=== PATIENT | female | born 1965 | race Caucasian/White ===

== ENCOUNTER → 2017-09-04 | Outpatient (CLI) | payer OTHER | LOC: CAT 16:42 | DX: R59.1 Generalized enlarged lymph nodes (principal) ==

== ENCOUNTER → 2017-10-30 | Outpatient (CLI) | payer OTHER | LOC: MRI 08:15 | DX: R59.0 Localized enlarged lymph nodes (principal) ==

== ENCOUNTER → 2017-10-31 | Outpatient (CLI) | payer OTHER | LOC: RAD 08:33 | DX: N63.10 Unspecified lump in the right breast, unspecified quadrant (principal); R92.8 Other abnormal and inconclusive findings on diagnostic imaging of breast ==

== ENCOUNTER → 2017-11-02 | Outpatient (CLI) | payer OTHER ==
--- NOTE | ~2017-11-02 | S ---
[facility] [address] [place] [address] SURGICAL PATH RPT PROCEDURE Name: JAMAICA OORZCO Room #: REG [facility].#: [id number] Admission: 11/02/17 Date of : 63 Discharge: Report #: [id number] Path Case #: [id number] PATHOLOGY REPORT COLLECTION DATE: 11/02/2017 RECEIVED DATE: 11/02/2017 SUBMITTING PHYS: Dr. Arturo Chaves OTHER PHYS: Dr. Jt Ashley SPECIMEN(S) RECEIVED: A.Left breast 6:00 2cm FN B.Left breast axilla node * * * * * * * * * * * * FINAL DIAGNOSIS: A. Left breast 6:00 2cm FN: - INVASIVE MAMMARY CARCINOMA, DUCTAL TYPE, POORLY DIFFERENTIATED. - See comment. B. Left breast axilla node: - METASTATIC CARCINOMA PRESENT. COMMENT: Specimen type: Breast biopsy Tumor site: Left breast, 6:00, 2 cm from nipple Tumor quantitation: Measures up to 0.4 cm in greatest dimension Histologic type: Invasive mammary carcinoma, ductal type Histologic grade: Grade 3, poorly differentiated Tubules, nuclei and mitoses: Tubules 3, Nuclei 2, Mitoses - 3 LVSI: Not identified Microcalcifications: Not identified Markers: ER, MS, HER2, Ki67 Block: A1, will be reported as addendum This case is co-reviewed by Dr. Anca Sullivan. The findings were discussed with [place] at the [facility] on 11/03/2017 at 1:58 PM. PATHOLOGIST: REPORT ELECTRONICALLY SIGNED BY: Tom Barboza M.D. for DATE/TIME: 11/03/2017 14:00 * * * * * * * * * * * * [facility] [place] [address] SURGICAL PATH RPT PROCEDURE Name: JAMAICA OROZCO [id number] Admission: 11/02/17 Date of : 63 Discharge: Report #: [id number] Path Case #: [id number] GROSS PATHOLOGY: A. Received in formalin labeled "Jamaica Orozco, left breast 6:00 2 cm FN," are three needle cores of yellow-pearl fibrofatty tissue measuring 2.0 x 1.3 x 0.3 cm in aggregate dimensions. The tissue is submitted in its entirety in cassette A1. The cold ischemic time is 5 minutes. The total formalin fixation time is 10 hours and 45 minutes. B. Received in formalin labeled "Jamaica Orozco, left breast axilla node," are four needle cores of yellow-pearl fibrofatty tissue measuring 1.4 x 0.4 x 0.1 cm in aggregate dimensions. The tissue is submitted in its entirety in cassette B1. The cold ischemic time is 5 minutes. The total formalin fixation time is 10 hours and 40 minutes. (SDY; 11/02/2017) CLINICAL HISTORY: Left breast mass, left axilla enlarged concern for lymphoma INITIAL CPT CODE(S): A; 19571, 60291(4) B; 20783 PROCEDURE REPORT (Order Date: 11/03/2017 14:01) COMMENT: Quantitative image analysis was performed on block A1. Please see next page for scanned image of results. (AMJ 11/07/2017) PATHOLOGIST: Glenn Hebert M.D. REPORT ELECTRONICALLY SIGNED BY: Glenn Hebert M.D. DATE/TIME: 11/07/2017 13:[address] [facility] [address] [place] [id number] PHONE: [phone] DIRECTOR: Yoni Elmore M.D. * * * END OF REPORT * * *
== END | disposition home or self-care (01) ==
LOC: ULTRA 07:49
DX: C79.81 Secondary malignant neoplasm of breast (principal); C80.1 Malignant (primary) neoplasm, unspecified; R92.0 Mammographic microcalcification found on diagnostic imaging of breast

== ENCOUNTER → 2017-11-07 | Outpatient (CLI) | payer OTHER | LOC: NUC 08:21 | DX: M19.012 Primary osteoarthritis, left shoulder (principal); C50.912 Malignant neoplasm of unspecified site of left female breast ==

== ENCOUNTER → 2017-11-13 | Outpatient (CLI) | payer OTHER ==
[~2017-11-13] MED LIST: HYDROCODONE-AP1 EAC6 PO; KEFLEX500 M1 PO; SYNTHROID50 MCG PO; VALIUM5 MG PO; ZOFRAN ODT4 MG PO
--- NOTE | ~2017-11-13 | 2DMMODE ---
[facility] [address] [place] [address] 2 D/M-MODE ECHOCARDIOGRAM Name: JAMAICA OROZCO Room #: REG [facility]#: [id number] Admission: 11/13/17 Attend Phys: Physician not on s Discharge: Date of : 63 Date of Service: 11/13/17 0921 Report #: [id number] THIS REPORT FOR: //name// APPROVED REPORT Study performed: 11/13/2017 09:31:48 EXAM: Comprehensive 2D, Doppler, and color-flow Echocardiogram Patient Location: Out-Patient Status: routine BSA: 1.73 HR: 75 bpm BP: 110/82 mmHg Rhythm: NSR Other Information Study Quality: Good Indications Pre-Chemo. 2D Dimensions RVDd: 33.74 mm LVEF(%): 64.41 (>50%) IVSd: 11.28 (7-11mm) LVOT Diam: 19.80 (18-24mm) LVDd: 37.42 mm PWd: 9.29 (7-11mm) LVDs: 24.51 (25-40mm) Aortic Root: 31.45 mm Fowler's LVEF: 64.41 % Volumes Left Atrial Volume (Systole) Single Plane 4CH: 30.65 mL Single Plane 2CH: 27.86 mL LA ESV Index: 18.00 mL/m2 Aortic Valve AoV Peak Kevin.: 1.41 m/s AO Peak Gr.: 7.95 mmHg LVOT Max P.28 mmHg LVOT Max V: 1.35 m/s TAO Vmax: 2.94 cm2 Mitral Valve E/A Ratio: 0.8 MV Decel. Time: 205.28 ms [facility] [address] [place] [address] 2 D/M-MODE ECHOCARDIOGRAM Name: PAMJAMAICA Room #: [facility]#: [id number] Admission: 11/13/17 Attend Phys: Physician not on s Discharge: Date of : 63 Date of Service: 11/13/17 0921 Report #: [id number] MV E Max Kevin.: 0.58 m/s MV A Kevin.: 0.71 m/s MV PHT: 59.53 ms IVRT: 87.66 ms Pulmonary Valve PV Peak Kevin.: 1.01 m/s PV Peak Gr.: 4.08 mmHg Pulmonary Vein P Vein S: 0.50 m/s P Vein A: 0.31 m/s P Vein D: 0.32 m/s P Vein A Dur.: 124.6 msec P Vein S/D Ratio: 1.56 Tricuspid Valve TR Peak Kevin.: 2.09 m/s RAP Estimate: 5.00 mmHg TR Peak Gr.: 17.40 mmHg PA Pressure: 22.00 mmHg Left Ventricle The left ventricle is normal size. There is normal LV segmental wall motion. There is normal left ventricular wall thickness. Left ventricular systolic function is normal. LVEF is 55-60%. Mild diastolic dysfunction is present (impaired relaxation pattern). Right Ventricle The right ventricle is normal size. The right ventricular systolic function is normal. Atria The left atrium size is normal. The right atrium size is normal. Aortic Valve The aortic valve is normal in structure. No aortic regurgitation is present. There is no aortic valvular stenosis. Mitral Valve The mitral valve is normal in structure. Trace mitral regurgitation. No evidence of mitral valve stenosis. Tricuspid Valve The tricuspid valve is normal in structure. Trace tricuspid regurgitation. Estimated PAP is 20-25mmHg. Pulmonic Valve [facility] [address] [place] [address] 2 D/M-MODE ECHOCARDIOGRAM Name: JAMAICA OROZCO Room #: REG [facility]#: [id number] Admission: 11/13/17 Attend Phys: Physician not on s Discharge: Date of : 63 Date of Service: 11/13/17 0921 Report #: [id number] The pulmonary valve is normal in structure. Trace pulmonic regurgitation. Great Vessels The aortic root is normal in size. The ascending aorta is normal in size. IVC is normal in size and collapses >50% with inspiration. Pericardium There is no pericardial effusion. <Conclusion> The left ventricle is normal size. LVEF is 55-60%. The aortic valve is normal in structure. The mitral valve is normal in structure. Trace mitral regurgitation. The tricuspid valve is normal in structure. Trace tricuspid regurgitation. Estimated PAP is 20-25mmHg. The pulmonary valve is normal in structure. Trace pulmonic regurgitation. There is no pericardial effusion. <ELECTRONICALLY SIGNED> By: Josesito Pruitt MD 11/13/17920 0 0 Josesito Pruitt MD /INF
--- NOTE | ~2017-11-13 | S ---
[facility] [address] [place] [address] SURGICAL PATH RPT PROCEDURE Name: JAMAICA OROZCO Room #: REG [facility].#: [id number] Admission: 11/13/17 Date of : 63 Discharge: Report #: [id number] Path Case #: [id number] PATHOLOGY REPORT COLLECTION DATE: 11/13/2017 RECEIVED DATE: 11/13/2017 SUBMITTING PHYS: Dr. Arturo Chaves OTHER PHYS: Dr. Ronaldo Casas ADDENDUM REPORT (Order Date: 11/16/2017 16:02) ADDENDUM COMMENT: An addendum is issued to relay immunohistochemical stain results and final diagnosis. Immunohistochemical stains with appropriate control show: (Block A1) CD20: highlights B lymphoid cells within germinal centers and mantle zone CD3: highlights T lymphoid cells within interfollicular regions CD5: highlights T lymphoid cells within interfollicular regions CD10: highlights B lymphoid cells within germinal centers BCL-6: highlights B lymphoid cells within germinal centers CD43: highlights T lymphoid cells within interfollicular regions BCL-2: highlights B and T lymphoid cells with lack of staining within germinal centers Immunophenotypic studies by flow cytometry do not show evidence of non-Hodgkin lymphoma (please see separate flow cytometry report from [employer] ([id number]). Based on the morphology, immunohistochemical staining pattern and flow cytometry, these findings are consistent with benign reactive lymph node. It should be noted that partially involved lymph node by malignancy cannot be totally excluded due to sampling artifact. Excision of the lymph node is recommended if clinically suspicious. (LOSQ:mgnancy; 11/16/2017) Professional services performed under supervision of [facility] Quality Systems [place] [address] [place] [address]. ELECTRONICALLY SIGNED BY: Sissy Herndon M.D. DATE/TIME:11/16/2017 23:53 SPECIMEN(S) RECEIVED: A.Left neck node * * * * * * * * * * * * FINAL DIAGNOSIS: Lymph node "left neck node, biopsy": [address] [address] SURGICAL PATH RPT PROCEDURE Name: JAMAICA OROZCO Room #: REG [facility]#: [id number] Admission: 11/13/17 Date of : 63 Discharge: Report #: [id number] Path Case #: [id number] - Negative for carcinoma. - See comment. COMMENT: This case will also be reviewed by the hematopathologist, Dr. Sissy Herndon. History of previous breast carcinoma noted. Immunoperoxidase stains are ordered to rule out a lymphoma and an additional report will follow by the Hematopathologist (CHERY:loni; 11/14/2017) PATHOLOGIST: Glenn Hebert M.D. REPORT ELECTRONICALLY SIGNED BY: Glenn Hebert M.D. DATE/TIME: 11/15/2017 16:08 * * * * * * * * * * * * GROSS PATHOLOGY: Received in formalin labeled "Shay[place], [place], left neck node" and consists of a few red quiñones tissue cores ranging in size a 0.2 cm to 0.4 cm, each with a uniform diameter of less than 0.1 cm. The specimen is totally submitted as A1. (TAVIA; 11/13/2017) CLINICAL HISTORY: Left neck node, breast CA INITIAL CPT CODE(S): A; 63578, 33465, 34933, 54415, 03619, 61457, 83060, 73255 Professional services performed by [facility] at [facility] [address], [place] [address] Technical services performed by [facility] at [address] [place] [address], [address], [place] [address]. [facility] [address] [place] [address] PHONE: [phone] DIRECTOR: Yoni Elmore M.D. * * * END OF REPORT * * *
== END | disposition home or self-care (01) ==
LOC: CV 06:58
DX: D36.0 Benign neoplasm of lymph nodes (principal)

== ENCOUNTER → 2017-11-16 | Outpatient (CLI) | payer OTHER ==
[~2017-11-16] VITALS: Ht 165.1 cm; Wt 65.8 kg
[2017-11-16 10:04] VITALS: BP 143/74
== END | disposition home or self-care (01) ==
LOC: SPEC 07:13
DX: Z45.2 Encounter for adjustment and management of vascular access device (principal); C50.912 Malignant neoplasm of unspecified site of left female breast

== ENCOUNTER → 2018-03-12 | Outpatient (CLI) | payer OTHER | LOC: MRI 06:06 | DX: C50.912 Malignant neoplasm of unspecified site of left female breast (principal); R59.9 Enlarged lymph nodes, unspecified ==

== ENCOUNTER → 2018-04-03 | Outpatient (CLI) | payer OTHER | LOC: RAD 10:35 | DX: Z01.818 Encounter for other preprocedural examination (principal); Z85.3 Personal history of malignant neoplasm of breast ==

== ENCOUNTER 2018-04-18 05:30 | Observation (INO) | payer OTHER ==
[~2018-04-18] VITALS: Ht 165.1 cm; Wt 67.1 kg
--- NOTE | ~2018-04-18 | EKG ---
[address] [address] ELECTROCARDIOGRAM REPORT Name: JAMAICA OROZCO Room #: 150-5 [facility]#: [id number] Admission: 04/18/18 Attend Phys: Nuno Martin MD Discharge: Date of : 63 Report #: [id number] THIS REPORT FOR: //name// [facility] Test Date: 2018-04-18 Test Time: 07:43:21 Pat Name: JAMAICA OROZCO Department: Room: 150 5 Gender: F Private Mortgage Banker Safe: : 1965 Requested By: Nuno Martin Order Number: [id number] MD: Rick Rivas Measurements Intervals Alleene Rate: 69 P: 13 ND: 147 QRS: 21 QRSD: 79 T: 24 QT: 406 QTc: 435 Interpretive Statements Sinus rhythm Normal tracing No previous ECG available for comparison Electronically Signed On 04-18-2018 7:54:47 CDT by Rick Rivas [email or web address] <ELECTRONICALLY SIGNED> By: Rick Rivas MD, [facility] 04/18/18 0754 0743 0743 Rick Rivas MD, FACC /EPI
--- NOTE | ~2018-04-18 | O ---
[facility] [address] [place] [address] OPERATIVE REPORT Name: JAMAICA OROZCO Room #: 417-I [facility]#: [id number] Admission: 04/18/18 Attend Phys: Nuno Martin MD Discharge: Date of : 63 Report #: [id number] THIS REPORT FOR: //name// CC: Nuno Ashley DATE OF SERVICE: 04/18/2018 PREOPERATIVE DIAGNOSES: 1. Malignancy, left breast. 2. Acquired absence, bilateral breasts. POSTOPERATIVE DIAGNOSES: 1. Malignancy, left breast. 2. Acquired absence, bilateral breasts. PROCEDURES: 1. Bilateral tissue engineering drawings checker, reconstruction of the breast following mastectomy using [place] Artoura ultra high profile expanders, catalog #[id number], each with added saline noted separately. 2. The use of AlloDerm regenerative tissue matrix utilized for the reconstruction of bilateral breasts following mastectomy. 3. The use of the SPY Elite system for evaluation of skin vascularity of the mastectomy flaps. SURGEON: Anthony La MD ANESTHESIA: General. ESTIMATED BLOOD LOSS: Minimal. DRAINS: Times 2. COMPLICATIONS: None. COUNTS: Needle, sponge and instrument counts correct. INDICATION FOR PROCEDURE: The patient is a 52-year-old female who presents following bilateral mastectomy for immediate reconstruction. She understands the risks, complications that were discussed preoperatively including bleeding, infection, scarring, skin loss, open wound complications and need for multiple procedures to complete the process. DESCRIPTION OF PROCEDURE: The patient was taken to the operating room after being marked in the holding area. Dr. Martin began the procedure. Upon [facility] [address] [place] [address] OPERATIVE REPORT Name: JAMAICA OROZCO Room #: 417-I REG [facility]#: [id number] Admission: 04/18/18 Attend Phys: Nuno Martin MD Discharge: Date of : 63 Report #: [id number] completion of the left breast, I was called to create the reconstruction. Just immediately prior to beginning the work on the left breast, the JumpStart handheld system was brought into place and 3 mL of indocyanine green was injected to evaluate the initial skin flap before developing any further dissection. The tissue immediately for us was showing excellent vascularity at which time the following procedure was carried out: The subpectoral flap was dissected on the left breast after copious irrigation with antibiotic solution and hemostasis achieved using cautery. At this time, the AlloDerm regenerative tissue matrix was applied and attached to the leading edge of the pectoralis muscle with 2-0 Vicryl suture running and interrupted. The engineering drawings checker was inserted and secured by all 3 posterior tabs. The AlloDerm was then tailored into place to recreate the submuscular pocket and inframammary folds. This accomplished each step of the procedure. Antibiotic irrigation was performed and hemostasis was noted to be excellent. Pesticide Applicator in place and well positioned, the procedure was then completed on that side with a placement of a 19-Surinamese Pablo drain through an inferolateral stab wound and the ON-Q pain pump catheter system. Wounds were closed with three layers with first 3-0 Monocryl running deep, the skin with Insorb skin tabitha and then 3-0 Monocryl running sutures on the skin. Interrupted 5-0 nylon and Steri-Strips later applied. The drain and ON-Q pain pumps were appropriately secured by the end of the procedure. The same procedure was carried out on the right side. Upon completion of the second side, the Spy Elite system handheld was brought into place to evaluate the intraoperative vascularity postmastectomy breast flaps. A 5 mg of indocyanine green was then injected and the intraoperative Spy Elite system handheld was placed over the patient to evaluate the vascularity of the breast tissue. The skin was healthy and well perfused almost immediately and no area of debridement or trimming was required. The patient tolerated the procedure well. Occlusive bulky dressings in place, she was taken to the recovery room in stable condition, to be discharged with prescriptions for pain, nausea and antibiotics. She will be admitted to the floor for overnight observation and pain control. By: 01 Anthony La MD /bora
--- NOTE | ~2018-04-18 | O ---
[facility] [place] [address] OPERATIVE REPORT Name: JAMAICA OROZCO Room #: 417-I REG [facility]#: [id number] Admission: 04/18/18 Attend Phys: Nuno Martin MD Discharge: Date of : 63 Report #: [id number] THIS REPORT FOR: //name// CC: Bowen Howell MD DATE OF SERVICE: 04/18/2018 PREOPERATIVE DIAGNOSIS: Carcinoma left breast with metastatic left axillary lymph node, status post neoadjuvant chemotherapy. POSTOPERATIVE DIAGNOSIS: Carcinoma left breast with metastatic left axillary lymph node, status post neoadjuvant chemotherapy, final pathology pending. OPERATION: 1. Left nipple-sparing mastectomy with en bloc axillary node dissection plus specimen x-ray for clipped axillary node. 2. Excisional biopsy, left nipple tissue. 3. Right nipple-sparing mastectomy. 4. Excisional biopsy, right nipple tissue. 5. Removal of Port-A-Cath. SURGEON: Nuno Martin MD. CO-SURGEON: Dr. Anthony La. ASSISTANTS: Medical student, Bo and medical student, MS Marisa3. ANESTHESIA: General. DESCRIPTION OF PROCEDURE: With the patient in the supine position and with a satisfactory general anesthesia, the abdomen and chest, both breasts and both axillary regions were widely prepped with ChloraPrep solution. Sterile drapes were applied. The radiologist had already performed wire localization for the clipped left axillary lymph node. Dr. La and I had already talked to the patient about options and she wanted bilateral nipple-sparing mastectomy with immediate reconstruction. She wanted removal of the Port-A-Cath. The patient had already been marked preoperatively for the appropriate anatomic landmarks. Dr. La and Chip had discussed incision options and we felt that the inframammary incisions would give the best results for this patient. A left inframammary [address] [address] OPERATIVE REPORT Name: PAMJAMAICA K Room #: 417-I [facility]#: [id number] Admission: 04/18/18 Attend Phys: Nuno Martin MD Discharge: Date of : 63 Report #: [id number] incision was made and then dissection was carried down through the skin and subcutaneous tissue. The skin flaps were developed using electrocautery and a nipple-sparing mastectomy was performed, removing the entire breast together with the pectoralis fascia. During the dissection, the dissection was carried up into the axilla and we were able to get excellent exposure to accomplish the lymph node dissection with the single inframammary incision. The radiologist had already performed wire localization for the clipped lymph node. The axillary vein, axillary artery, brachial plexus structures, long thoracic nerve and thoracodorsal nerve, artery and vein were all identified and protected from harm. The specimen included the entire breast together with the pectoralis fascia and the left axillary lymph node dissection level 1 and level 2 en bloc. The specimen was marked with sutures for orientation purposes. The blood and lymphatic supply to the resected axillary tissues were controlled using Harmonic scalpel. Specimen x-ray confirmed removal of the guidewire and the clipped lymph node and also the clip inside the breast from the previous biopsy. The radiologist was happy with the specimen x-ray and so was I. The specimen was given directly to the pathologist. Next, the tissue inside the nipple was excised and submitted for frozen section, which was benign. The skin flaps appeared excellent. We utilized the spy technology to confirm good blood supply to the skin flaps. Hemostasis was excellent. The wound was irrigated with Dr. La's antibiotic solution. At this point, I went to the right side with new gloves and instruments while Dr. La started his reconstruction on the left side. A similar incision was made on the right side and a similar dissection was performed, performing a nipple-sparing mastectomy with removal of the entire breast and the pectoralis fascia and the tail of Patton. The specimen was marked with sutures for orientation purposes and then was given directly to the pathologist. The tissue inside the right nipple was excised and submitted for frozen section, which was benign. The skin flaps appeared excellent. Hemostasis was excellent. Next, I removed the Port-A-Cath from the subcutaneous location in the right upper chest wall and this was submitted separately for gross inspection only. The venous tunnel was closed using interrupted 3-0 Vicryl. The wound was irrigated with Dr. La's antibiotic solution. Hemostasis was excellent. The sponge, instrument and needle counts were reported as correct. At this point, I scrubbed out and Dr. La then continued his reconstruction, which will be dictated separately by him. Estimated blood loss for my portion of the operation was less than 150 mL. <ELECTRONICALLY SIGNED> By: Nuno Martin MD 04/19/18 0637 1436 1504 Nuno Martin MD /nt
[~2018-04-18 05:30] MED LIST changes: -HYDROCODONE-AP1 EAC6 PO; -KEFLEX500 M1 PO; -VALIUM5 MG PO; -ZOFRAN ODT4 MG PO
[2018-04-18 07:57] LABS: HEMOGLOBIN 12.2 gm/dL (12.0-15.0); MCH 30.5 pg (26.0-34.0); MCHC 33.8 g/dL (28.0-37.0); MCV 90.2 fL (80.0-100.0); RBC 3.99 mil/uL (4.20-5.00); RDW 14.3 % (10.5-14.5); WBC 4.9 thou/uL (4.0-11.0)
[2018-04-18 08:06] LABS: CREATININE 0.8 mg/dL (0.6-1.0); POTASSIUM 3.7 mmol/L (3.5-5.1)
[2018-04-18 08:12] LABS: ALBUMIN 3.3 g/dL (3.4-5.0); TOTAL BILIRUBIN 0.2 mg/dL (<0.1-1.0); TOTAL PROTEIN 6.5 g/dL (6.4-8.2)
[2018-04-18 08:28] VITALS: BP 120/72
[2018-04-19] VITALS: BP 148/76
[2018-04-19 08:25] VITALS: BP 115/76
[2018-04-19 10:22] VITALS: BP 115/76
[2018-04-19] MEDS ORDERED: VALIUM5 MG PO (10:38)
[2018-04-19] MEDS ORDERED: HYDROCODONE-AP1 EAC6 PO (10:39)
[2018-04-19] MEDS ORDERED: KEFLEX500 M1 PO (10:39)
[2018-04-19] MEDS ORDERED: ZOFRAN ODT4 MG PO (10:40)
== END 2018-04-19 13:32 | disposition home or self-care (01) ==
LOC: OR 05:30 → TBA 05:30 → OR 11:29 → 4E 17:40 → OR 17:41 → 4E 04-19 13:32
PROVIDERS: Specialist
DX: C50.912 Malignant neoplasm of unspecified site of left female breast (principal); Z90.13 Acquired absence of bilateral breasts and nipples
CPT/HCPCS: 10783; 50010; 50101; 50386; 50403; 50648; 52188; 52190; 53040; 56524; 56525; 56526; 56527; 56528; 56805; 57103; 62110; 62900; 70005

== ENCOUNTER 2018-10-10 05:37 | Day surgery (SDC) | payer OTHER ==
[~2018-10-10] VITALS: Ht 165.1 cm; Wt 67.1 kg
--- NOTE | ~2018-10-10 | O ---
[facility] [address] [place] [address] OPERATIVE REPORT Name: JAMAICA OROZCO Room #: DEP [facility].#: [id number] Admission: 10/10/18 Attend Phys: Anthony La MD Discharge: 10/10/18 Date of : 63 Report #: [id number] THIS REPORT FOR: //name// CC: Anthony Ashley PREOPERATIVE DIAGNOSES: 1. Acquired absence, bilateral breasts. 2. Personal history of malignancy breast. 3. Malignancy, left breast. 4. Malpositioned bilateral breast implants. POSTOPERATIVE DIAGNOSES: 1. Acquired absence, bilateral breasts. 2. Personal history of malignancy breast. 3. Malignancy, left breast. 4. Malpositioned bilateral breast implants. PROCEDURE: Bilateral tissue hydrography teacher removal and replacement using Chrisman MemoryGel extra breast implant; smooth high-profile extra implants, catalog numbers [id number], each containing 700 mL of gel silicone. SURGEON: Anthony La M.D. ANESTHESIA: General. ESTIMATED BLOOD LOSS: None. DRAINS: None. COMPLICATIONS: None. COUNTS: Needle, sponge and instrument counts correct. INDICATIONS FOR PROCEDURE: The patient is a 52-year-old female who presents for second-stage reconstruction following previous mastectomy and tissue hydrography teacher reconstruction. She understands the risks and complications of this procedure, including bleeding, infection, scarring, possible skin loss, open wound complications and need for further surgery. The patient also agreed that the implant is just a little bit high, and therefore, inferior capsulotomy would be carried out during the procedure to better position the implants. DESCRIPTION OF PROCEDURE: The patient was marked in the holding area in the operating room under general anesthesia. The anterior chest was prepped and draped. The previous incisions were outlined for incision of Mandi local. Each incision was created. Each hydrography teacher was identified and each was ruptured. The volume was noted to be between, as expected, 650 and 700 mL. Each hydrography teacher [facility] [address] [place] [address] OPERATIVE REPORT Name: JAMAICA OROZCO Room #: DEP [facility].#: [id number] Admission: 10/10/18 Attend Phys: Anthony La MD Discharge: 10/10/18 Date of : 63 Report #: [id number] was removed and disposed off. The pocket was copiously irrigated with the implant sizers inserted sequentially, different sizers based on the volumes removed today. Lower pole fullness was still necessary; therefore, the inferior capsulotomies were carried out. There was no lowering of the fold itself; simply opening the capsule from 3 o'clock to 9 o'clock position inferiorly on both sides. The sizer was inserted, lower pole looked better. Therefore, the sizer was removed, the pockets were copiously irrigated and the permanent implants were inserted using the Cline funnel no-touch technique. The wounds were closed with running interrupted 3-0 Monocryl in the dermis and 3-0 Monocryl running continuous on the skin. Occlusive bulky dressings were applied after the wound closure was completed with interrupted 5-0 nylons and Steri-Strips. The patient was discharged to recovery and then home, with written and verbal instructions and apparent followup and to see me in the office as instructed tomorrow. She is to call lupis with an update. By: 0759 1110 Anthony La MD /nt
[~2018-10-10 05:37] MED LIST changes: +HYDROCODONE-AP1 EAC6 PO; +KEFLEX500 M1 PO; +VALIUM5 MG PO; +ZOFRAN ODT4 MG PO
[2018-10-10 13:35] VITALS: BP 122/60
== END 2018-10-10 18:00 | disposition home or self-care (01) ==
LOC: OR 05:37 → TBA 05:38 → OR 11:23
DX: T85.49XA Other mechanical complication of breast prosthesis and implant, initial encounter (principal); Z90.13 Acquired absence of bilateral breasts and nipples; Z85.3 Personal history of malignant neoplasm of breast; E03.9 Hypothyroidism, unspecified; Z98.890 Other specified postprocedural states; Z79.899 Other long term (current) drug therapy; Y83.8 Other surgical procedures as the cause of abnormal reaction of the patient, or of later complication, without mention of misadventure at the time of the procedure
CPT/HCPCS: 50010; 50101; 50386; 50403; 56526; 56527; 57202; 57203

== ENCOUNTER → 2018-11-05 | Outpatient (CLI) | payer OTHER ==
[~2018-11-05] VITALS: Ht 165.1 cm; Wt 63.5 kg
== END | disposition home or self-care (01) ==
LOC: GI 06:18
DX: Z12.11 Encounter for screening for malignant neoplasm of colon (principal); K57.30 Diverticulosis of large intestine without perforation or abscess without bleeding; K64.8 Other hemorrhoids; E03.9 Hypothyroidism, unspecified; Z79.899 Other long term (current) drug therapy; Z85.3 Personal history of malignant neoplasm of breast; Z98.890 Other specified postprocedural states
CPT/HCPCS: 62110; 62900

== ENCOUNTER → 2018-12-14 | Outpatient (CLI) | payer OTHER | LOC: NUC 07:01 | DX: N28.1 Cyst of kidney, acquired (principal); M47.816 Spondylosis without myelopathy or radiculopathy, lumbar region; M47.814 Spondylosis without myelopathy or radiculopathy, thoracic region; C50.912 Malignant neoplasm of unspecified site of left female breast; R94.5 Abnormal results of liver function studies; Z17.1 Estrogen receptor negative status [ER-] ==

== ENCOUNTER → 2020-10-05 | Outpatient (CLI) | payer OTHER ==
[2020-10-05 08:34] LABS: URINE BILIRUBIN NEGATIVE (Negative); URINE BLOOD NEGATIVE (Negative); URINE CLARITY CLEAR; URINE COLOR YELLOW; URINE GLUCOSE-RANDOM* NEGATIVE (Negative); URINE KETONES NEGATIVE (Negative); URINE LEUKOCYTES-REFLEX TRACE (Negative); URINE NITRITE-REFLEX NEGATIVE (Negative); URINE PROTEIN (DIPSTICK) NEGATIVE (Negative); URINE SPECIFIC GRAVITY >= 1.030 (1.005-1.035); URINE UROBILINOGEN 0.2 E.U./dl (0.2-1.0)
[2020-10-05 08:40] LABS: ABSOLUTE NEUTROPHILS 2.3 thou/uL (1.4-8.2); BASOPHILS 1.3 % (0.0-2.0); HEMATOCRIT 38.4 % (37.0-47.0); HEMOGLOBIN 12.9 gm/dL (12.0-15.0); MCH 30.2 pg (26.0-34.0); MCHC 33.6 g/dL (28.0-37.0); MCV 89.8 fL (80.0-100.0); MONOCYTES 9.4 % (1.0-8.0); PLATELET COUNT 259 thou/uL (150-400); POLYS 45.3 % (36.0-66.0); RBC 4.28 mil/uL (4.20-5.00); RDW 14.7 % (10.5-14.5)
[2020-10-05 08:48] LABS: ALBUMIN 3.6 g/dL (3.4-5.0); ANION GAP 8 mmol/L (7-16); BUN 18 mg/dL (7-18); CALCIUM 9.2 mg/dL (8.5-10.1); CHLORIDE 103 mmol/L (98-107); CHOLESTEROL 211 mg/dL (<200); CO2 26 mmol/L (21-32); CREATININE 0.9 mg/dL (0.6-1.0); GLUCOSE 95 mg/dL (74-106); HDL CHOLESTEROL 55 mg/dL (>40); LDL CHOLESTEROL 131 mg/dL (<100); POTASSIUM 4.9 mmol/L (3.5-5.1); SGOT 22 U/L (15-37); SGPT 44 U/L (30-65); SODIUM 137 mmol/L (136-145); TC:HDL 3.8 Ratio (Not establshd); TOTAL BILIRUBIN 0.3 mg/dL (0.2-1.0); TOTAL PROTEIN 7.5 g/dL (6.4-8.2); TRIGLYCERIDE 125 mg/dL (<150); VLDL 25 mg/dL (<40)
== END ==
LOC: LAB 07:19
PROVIDERS: ATTEND Family Medicine
DX: Z00.00 Encounter for general adult medical examination without abnormal findings (principal); E03.9 Hypothyroidism, unspecified

== ENCOUNTER → 2020-10-26 | Outpatient (CLI) | payer OTHER ==
[2020-10-26 09:06] LABS: ABSOLUTE NEUTROPHILS 2.2 thou/uL (1.4-8.2); BASOPHILS 1.1 % (0.0-2.0); EOSINOPHILS 5.7 % (0.0-3.0); HEMATOCRIT 38.7 % (37.0-47.0); HEMOGLOBIN 12.9 gm/dL (12.0-15.0); LYMPHOCYTES 35.4 % (24.0-44.0); MCHC 33.4 g/dL (28.0-37.0); MCV 89.8 fL (80.0-100.0); MONOCYTES 10.4 % (1.0-8.0); PLATELET COUNT 264 thou/uL (150-400); POLYS 47.4 % (36.0-66.0); RBC 4.31 mil/uL (4.20-5.00); RDW 14.5 % (10.5-14.5); WBC 4.7 thou/uL (4.0-11.0)
[2020-10-26 09:22] LABS: ALBUMIN 3.5 g/dL (3.4-5.0); CALCIUM 8.9 mg/dL (8.5-10.1); CREATININE 0.9 mg/dL (0.6-1.0); POTASSIUM 4.3 mmol/L (3.5-5.1); TOTAL BILIRUBIN 0.3 mg/dL (0.2-1.0); TOTAL PROTEIN 7.4 g/dL (6.4-8.2)
== END ==
LOC: LAB 07:40
PROVIDERS: ATTEND Internal Medicine Hematology & Oncology
DX: C50.912 Malignant neoplasm of unspecified site of left female breast (principal); Z17.1 Estrogen receptor negative status [ER-]

== ENCOUNTER → 2021-04-23 | Outpatient (CLI) | payer OTHER ==
[2021-04-23 12:23] LABS: ABSOLUTE NEUTROPHILS 2.3 thou/uL (1.4-8.2); BASOPHILS 1.4 % (0.0-2.0); EOSINOPHILS 3.2 % (0.0-3.0); HEMATOCRIT 35.7 % (37.0-47.0); HEMOGLOBIN 11.8 gm/dL (12.0-15.0); LYMPHOCYTES 34.8 % (24.0-44.0); MCHC 33.2 g/dL (28.0-37.0); MCV 81.4 fL (80.0-100.0); MONOCYTES 9.4 % (1.0-8.0); PLATELET COUNT 291 thou/uL (150-400); POLYS 51.2 % (36.0-66.0); RBC 4.39 mil/uL (4.20-5.00); RDW 17.9 % (10.5-14.5); WBC 4.5 thou/uL (4.0-11.0)
[2021-04-23 12:46] LABS: ALBUMIN 3.7 g/dL (3.4-5.0); CALCIUM 9.2 mg/dL (8.5-10.1); CREATININE 0.9 mg/dL (0.6-1.0); POTASSIUM 4.3 mmol/L (3.5-5.1); TOTAL BILIRUBIN 0.4 mg/dL (0.2-1.0); TOTAL PROTEIN 7.7 g/dL (6.4-8.2)
== END ==
LOC: LAB 11:40
PROVIDERS: ATTEND Internal Medicine Hematology & Oncology
DX: C50.912 Malignant neoplasm of unspecified site of left female breast (principal); Z17.1 Estrogen receptor negative status [ER-]

== ENCOUNTER → 2021-10-27 | Outpatient (CLI) | payer OTHER ==
[2021-10-27 08:42] LABS: ABSOLUTE NEUTROPHILS 1.9 thou/uL (1.4-8.2); BASOPHILS 1.8 % (0.0-2.0); EOSINOPHILS 4.6 % (0.0-3.0); HEMATOCRIT 33.1 % (37.0-47.0); HEMOGLOBIN 10.8 gm/dL (12.0-15.0); LYMPHOCYTES 34.8 % (24.0-44.0); MCH 27.4 pg (26.0-34.0); MCHC 32.7 g/dL (28.0-37.0); MCV 83.7 fL (80.0-100.0); MONOCYTES 10.5 % (1.0-8.0); PLATELET COUNT 332 thou/uL (150-400); POLYS 48.3 % (36.0-66.0); RBC 3.95 mil/uL (4.20-5.00); RDW 15.4 % (10.5-14.5); WBC 3.9 thou/uL (4.0-11.0)
[2021-10-27 09:04] LABS: URINE BILIRUBIN NEGATIVE (Negative); URINE BLOOD NEGATIVE (Negative); URINE CLARITY CLEAR; URINE COLOR YELLOW; URINE GLUCOSE-RANDOM* NEGATIVE (Negative); URINE KETONES NEGATIVE (Negative); URINE NITRITE-REFLEX NEGATIVE (Negative); URINE PROTEIN (DIPSTICK) NEGATIVE (Negative); URINE SPECIFIC GRAVITY >= 1.030 (1.005-1.035); URINE UROBILINOGEN 0.2 E.U./dl (0.2-1.0)
[2021-10-27 09:05] LABS: URINE LEUKOCYTES-REFLEX 2+ (Negative)
[2021-10-27 09:31] LABS: ALBUMIN 3.5 g/dL (3.4-5.0); ANION GAP 9 mmol/L (7-16); BUN 16 mg/dL (7-18); CALCIUM 8.8 mg/dL (8.5-10.1); CHLORIDE 103 mmol/L (98-107); CHOLESTEROL 226 mg/dL (<200); CO2 26 mmol/L (21-32); CREATININE 0.9 mg/dL (0.6-1.0); GLUCOSE 86 mg/dL (74-106); HDL CHOLESTEROL 73 mg/dL (>40); LDL CHOLESTEROL 139 mg/dL (<100); POTASSIUM 3.7 mmol/L (3.5-5.1); SGOT 25 U/L (15-37); SGPT 35 U/L (30-65); SODIUM 138 mmol/L (136-145); TC:HDL 3.1 Ratio (Not establshd); TOTAL BILIRUBIN 0.4 mg/dL (0.2-1.0); TOTAL PROTEIN 7.3 g/dL (6.4-8.2); TRIGLYCERIDE 72 mg/dL (<150); VLDL 14 mg/dL (<40)
[2021-10-27 09:37] LABS: BACTERIA-REFLEX 1-9 Few /HPF (None Seen); CASTS None Seen /LPF (None Seen); CRYSTALS None Seen /LPF (None Seen); MUCUS 0-3 Light strn/LPF (None Seen); SQUAMOUS 0-3 Few /LPF (0-3); URINE RBC None Seen /HPF (NONE SEEN); URINE WBC-REFLEX 0-5 Rare /HPF (0-5)
== END ==
LOC: LAB 06:54
PROVIDERS: ATTEND Internal Medicine Hematology & Oncology
DX: Z00.00 Encounter for general adult medical examination without abnormal findings (principal); C50.812 Malignant neoplasm of overlapping sites of left female breast; E03.9 Hypothyroidism, unspecified; Z17.1 Estrogen receptor negative status [ER-]

== ENCOUNTER → 2021-11-16 | Outpatient (CLI) | payer OTHER | LOC: CAT 11:11 | PROVIDERS: ATTEND Family Medicine | DX: Z13.6 Encounter for screening for cardiovascular disorders (principal); I25.10 Atherosclerotic heart disease of native coronary artery without angina pectoris; E78.00 Pure hypercholesterolemia, unspecified ==

== ENCOUNTER → 2021-11-16 | Outpatient (CLI) | payer OTHER ==
[2021-11-16 13:59] LABS: % SATURATION 8 % (20-39); IRON 35 ug/dL (50-170); TIBC 436 ug/dL (250-450)
[2021-11-16 14:28] LABS: FOLIC ACID 18.1 ng/mL (8.6-58.9)
[2021-11-16 15:04] LABS: ABSOLUTE RETIC COUNT 0.0383 10^6/uL; OBSERVED RETIC COUNT 0.9 % (0.6-2.6)
== END ==
LOC: LAB 11:03
PROVIDERS: ATTEND Internal Medicine Hematology & Oncology
DX: C50.812 Malignant neoplasm of overlapping sites of left female breast (principal); Z17.1 Estrogen receptor negative status [ER-]